=== PATIENT | female | born 1995 | race Caucasian/White ===

== ENCOUNTER 2019-08-17 13:40 | Outpatient (CLI) | payer OTHER, SELFPAY ==
[2019-08-17 14:08] VITALS: BMI 40.3
--- NOTE | 2019-08-17 14:08 | OBADM ---
This patient, Aicha Perez, admitted to the OB room OB Post 113 for observation. Patient/family oriented to hospital policies and general routines including ID bracelet, bed and alarms, visiting hours, pain management, procedures, bathroom and other care routines, personal items, smoking policy, room service/diet, and visiting hours. Patient/Family are encouraged to report perceived risks to care and to ask questions if they do not understand what they are told or what they should do.
[2019-08-17 14:15] VITALS: BP 141/83; PULSE 107
[2019-08-17 14:30] VITALS: BP 140/76; PULSE 107
[2019-08-17 14:39] LABS: Basophils Percent Auto 0.1 % (0.2-1.2); Eosinophils Absolute Auto 0.1 K/mm3 (0-0.3); Eosinophils Percent Auto 0.7 % (0-4.4); Hematocrit 38.7 % (37.0-47.0); Hemoglobin 12.9 g/dL (12.0-15.0); Immature Granulocyte Absolute 0.07 K/mm3 (0.00-0.031); Immature Granulocyte Percent A 0.6 % (0-0.5); Lymphocytes Absolute Auto 1.84 K/mm3 (0.9-3.2); Lymphocytes Percent Auto 16.7 % (18.3-44.2); Mean Corpuscular HGB Conc 33.3 g/dl (32-36); Mean Corpuscular Hemoglobin 30.7 pg (26-34); Mean Corpuscular Volume 92.1 fl (80-100); Monocytes Absolute Auto 0.6 K/mm3 (0.1-0.6); Monocytes Percent Auto 5.4 % (2.6-8.5); Neutrophils Absolute Auto 8.5 K/mm3 (1.3-6.7); Neutrophils Percent Auto 76.5 % (45.5-73.1); Platelet Count Result 138 k/mm3 (150-375); Red Cell Distribution Width 13.2 % (11.5-14.5); White Blood Count 11.1 K/mm3 (4.5-10.0)
[2019-08-17 14:45] VITALS: BP 132/81; PULSE 105
[2019-08-17 14:50] LABS: Alanine Aminotransferase 14 U/L (4-35); Albumin Level 3.5 g/dL (3.5-5.1); Alkaline Phosphatase 135 U/L (38-126); Aspartate Amino Transferase 17 U/L (14-36); Bilirubin,Total 0.4 mg/dL (0.2-1.3); Blood Urea Nitrogen 4 mg/dL (7-17); Calcium 8.9 mg/dL (8.4-10.2); Carbon Dioxide 22 mmol/L (22-30); Chloride 102 mmol/L (98-107); Estimated CRCL calculation 215 ml/min; Estimated Glomerular Filt Rate > 60; Glucose 123 mg/dL (65-105); Potassium 3.2 mmol/L (3.4-5.0); Sodium 134 mmol/L (137-145); Uric Acid 2.2 mg/dL (2.5-7.5)
[2019-08-17 14:54] LABS: Add Urine Microscopic? YES; Appearance Urine Clear (Clear); Bacteria Urine Trace /hpf; Bilirubin Urine 1+ (Negative); Blood Urine Negative (Negative); Color Urine Amber (Yellow); Glucose Urine UA Negative (Negative); Ketones Urine 2+ mg/dL (Negative); Leukocyte Esterase Ur Negative LEU/UL (NEGATIVE); Mucus Urine Heavy /lpf; Nitrate Urine Negative (Negative); Protein Urine 2+ mg/dL (Negative); RBC Urine 0-2 /hpf (0-2); Squamous Epithelial Cell Urine Few /hpf (Few); WBC Urine 0-3 /hpf (0-3)
[2019-08-17 15:00] VITALS: BP 125/77; PULSE 106
[2019-08-17 15:15] VITALS: TEMP 36.6
--- NOTE | 2019-08-17 15:17 | PC.NURSE ---
Called Dr Lam to review labs and blood pressures. Reported NST was reactive and patient is feeling baby move. Dr Lam said patient can be discharged.
== END 2019-08-17 15:24 | disposition home or self-care (01) ==
LOC: ANHOBOP 13:45 → ANHOBPP 13:49
PROVIDERS: Visit Provider Obstetrics & Gynecology
DX: O13.9 Gestational [pregnancy-induced] hypertension without significant proteinuria, unspecified trimester (principal)
CPT/HCPCS: 36415; 80053; 81001; 84550; 85025; 87086; 99199

== ENCOUNTER 2019-08-26 20:30 | Observation (INO) | payer OTHER, SELFPAY ==
--- NOTE | 2019-09-21 12:50 | PM.OBTRLD ---
OB - Triage/Final Diagnosis Visit Information Date of evaluation: 08/19/19 Final Diagnosis (1) False labor: Code(s): O47.9 - False labor, unspecified Status: Acute
== END 2019-08-26 21:45 | disposition home or self-care (01) ==
PROVIDERS: Admitting Provider Obstetrics & Gynecology; Visit Provider Obstetrics & Gynecology
DX: O47.1 False labor at or after 37 completed weeks of gestation (principal); Z3A.38 38 weeks gestation of pregnancy
CPT/HCPCS: G0378; G0379

== ENCOUNTER 2019-08-28 22:20 | Observation (INO) | payer OTHER, SELFPAY ==
[2019-08-28 23:00] VITALS: BMI 40.3
[2019-08-29 00:46] VITALS: BP 135/77; PULSE 91
--- NOTE | 2019-08-29 01:38 | OBADM ---
This patient, Aicha Perez, admitted to the OB room Labor/Delivery/Recovery 105 for observation. Patient/family oriented to hospital policies and general routines including ID bracelet, bed and alarms, visiting hours, pain management, procedures, bathroom and other care routines, personal items, smoking policy, room service/diet, and visiting hours. Patient/Family are encouraged to report perceived risks to care and to ask questions if they do not understand what they are told or what they should do.
--- NOTE | 2019-09-02 08:03 | PM.OBTRLD ---
OB - Triage/Final Diagnosis Final Diagnosis (1) False labor: Code(s): O47.9 - False labor, unspecified Status: Acute
== END 2019-08-29 01:05 | disposition home or self-care (01) ==
PROVIDERS: Admitting Provider Obstetrics & Gynecology; Visit Provider Obstetrics & Gynecology
DX: O47.1 False labor at or after 37 completed weeks of gestation (principal); Z3A.38 38 weeks gestation of pregnancy
CPT/HCPCS: G0378; G0379

== ENCOUNTER 2019-09-01 04:48 | Inpatient (IN) | payer OTHER, SELFPAY ==
[2019-09-01] VITALS (38 sets, daily range): BP systolic 118–151; BP diastolic 71–117; PULSE 97–135; RESP 16; TEMP 36.2–37; O2SAT 98
--- NOTE | 2019-09-01 05:25 | LDADM ---
This patient, Aicha Perez, was admitted to Labor/Delivery/Recovery 107 on 09/01/19 at 04:48. Plans for labor, pain management and were discussed with patient. Patient/family oriented to hospital policies and general routines including ID bracelet, bed and alarms, visiting hours, pain management, procedures, bathroom and other care routines, personal items, smoking policy, room service/diet and guest tray routines, security routines, and visiting hours. Patient/Family are encouraged to report perceived risks to care and to ask questions if they do not understand what they are told or what they should do. See OBIX for further documentation.
--- NOTE | 2019-09-01 05:34 | PC.NURSE ---
all documentation dated 08/31 was in error and was supposed to be dated for 09/01/19 at 0515
[2019-09-01 05:39] LABS: Basophils Percent Auto 0.1 % (0.2-1.2); Eosinophils Absolute Auto 0.1 K/mm3 (0-0.3); Hematocrit 42.6 % (37.0-47.0); Hemoglobin 13.8 g/dL (12.0-15.0); Immature Granulocyte Absolute 0.15 K/mm3 (0.00-0.031); Immature Granulocyte Percent A 1.1 % (0-0.5); Lymphocytes Absolute Auto 2.58 K/mm3 (0.9-3.2); Lymphocytes Percent Auto 18.9 % (18.3-44.2); Mean Corpuscular HGB Conc 32.4 g/dl (32-36); Mean Corpuscular Hemoglobin 30.1 pg (26-34); Mean Platelet Volume 11.7 fl (7.4-10.4); Monocytes Percent Auto 7.2 % (2.6-8.5); Neutrophils Absolute Auto 9.8 K/mm3 (1.3-6.7); Neutrophils Percent Auto 71.7 % (45.5-73.1); Platelet Count Result 160 k/mm3 (150-375); Red Blood Count 4.58 M/mm3 (4.2-5.4); Red Cell Distribution Width 13.2 % (11.5-14.5); White Blood Count 13.6 K/mm3 (4.5-10.0)
[2019-09-01] MEDS: LACTATED RINGERS 1,000 ML 125 ML IV CONT (05:42)
[2019-09-01] MEDS: AMPICILLIN 2 GM/NS 100 ML 2 GM/100 ML BAG IVPB (05:43)
[2019-09-01 07:26] LABS: Rapid Plasma Reagin Non-Reactive (NonReactive)
--- NOTE | 2019-09-01 07:41 | WPDOBADMIT ---
Obstetrics - Admit Note Admission Note: record reviewed. No pertinent additions to the history and/or any subsequent changes in the physical findings that are not consistent with the expected course of the were found. Additions to the history and/or subsequent changes in the physical findings follow. at 39 weeks for induction of labor. Cervix 4/50/-2. AROM with clear fluid. GBS+ so continue ampicillin. Second dose due at 0945 so will start pitocin at that time if not in active labor at that time
--- NOTE | 2019-09-01 07:42 | PM.IMHP ---
H&P: HPI History of Present Illness Chief complaint: INDUCTION OF LABOR Narrative: Aicha Perez is a 23 year old female at 39 weeks for induction of labor today and planning BTL 09/02. Occasional contractions. No complaints. Review of Systems Review of Systems: All systems reviewed & are unremarkable except as noted in HPI and below PMFSH Social History Social History Years smoked: 10 Smoking status: Current every day smoker Substance use: never Gender identity (if verbalized by the patient): Female Spiritual care concerns: No Meds Home Medications and Allergies Home Medications Medication Instructions Recorded Confirmed Type 1 tablet PO DAILY 08/17/19 08/29/19 History buspirone 1 tab-cap PO DAILY 08/17/19 08/29/19 History venlafaxine [Effexor XR] 150 mg PO QAM 08/17/19 08/29/19 History Allergies Allergy/AdvReac Type Severity Reaction Status Date / Time adhesive tape Allergy Mild Rash Verified 01/29/19 11:45 Vital Signs Vital Signs - 24 hr 09/01/19 05:15 09/01/19 06:27 09/01/19 06:31 Temperature 36.7 C Pulse Rate 121 H 129 H Blood Pressure 122/94 H 118/77 09/01/19 06:46 09/01/19 07:01 09/01/19 07:16 Temperature Pulse Rate 109 H 115 H 107 H Blood Pressure 145/71 H 132/82 119/91 H 09/01/19 07:31 Temperature Pulse Rate 109 H Blood Pressure 136/97 H Exam Const: General: no acute distress Resp: Auscultation: clear to auscultation bilaterally Cardio: Rate: regular rate Rhythm: regular rhythm GI: Inspection: non-distended GI Palp: Yes Soft to palpation and No Tenderness to palpation present (GI) Extrem: General: edema Psych: Mental Status: mental status grossly normal H&P: Results Labs Labs: Short CBC 09/01/19 Range/Units 05:29 WBC 13.6 H (4.5-10.0) K/mm3 Hgb 13.8 (12.0-15.0) g/dL Hct 42.6 (37.0-47.0) % Plt Count 160 (150-375) k/mm3 Assessment and Plan Assessment and plan (1) : Code(s): Z34.90 - Encounter for supervision of normal , unspecified, unspecified trimester Status: Acute Assessment and Plan: induction of labor with AROM for now, pitocin later if needed (2) Sterilization: Code(s): Z30.2 - Encounter for sterilization Status: Acute Assessment and Plan: Planning BTL 09/02. She signed consent after R/B/C/A discussed including surgical risks, risk of about 1%, increased risk of ectopic if occurs, and risk of regret. She expressed understanding and wishes to proceed (tomorrow after delivery).
[2019-09-01] MEDS: AMPICILLIN 1 GM/NS 50 ML 1 GM/50 ML BAG IVPB ×2 (09:47→14:23)
--- NOTE | 2019-09-01 12:27 | P.PNAN_ITS ---
Anes - Eval Pre Procedure Procedure: Operation Date: 09/02/19 12:00 Proposed Procedures p Post- Tubal Ligation - Audrey Lam MD Date/Time: 09/01/19 12:27 Pre Op Diagnosis: INDUCTION OF LABOR Patient Data Age: 23 Gender: F Height: Weight: 110 kg Last Vital Signs Temp 36.4 C 09/01/19 12:05 Pulse 127 H 09/01/19 12:01 BP 118/80 09/01/19 12:01 Allergies Allergy/AdvReac Type Severity Reaction Status Date / Time adhesive tape Allergy Mild Rash Verified 01/29/19 11:45 Home Medications Medication Instructions Recorded Confirmed Type 1 tablet PO DAILY 08/17/19 08/29/19 History buspirone 1 tab-cap PO DAILY 08/17/19 08/29/19 History venlafaxine [Effexor XR] 150 mg PO QAM 08/17/19 08/29/19 History Laboratory Tests 09/01/19 09/01/19 09/01/19 05:29 05:29 05:29 WBC 13.6 K/mm3 H K/mm3 (4.5-10.0) RBC 4.58 M/mm3 M/mm3 (4.2-5.4) Hgb 13.8 g/dL g/dL (12.0-15.0) Hct 42.6 % % (37.0-47.0) MCV 93.0 fl fl (80-100) MCH 30.1 pg pg (26-34) MCHC 32.4 g/dl g/dl (32-36) RDW 13.2 % % (11.5-14.5) Plt Count 160 k/mm3 k/mm3 (150-375) MPV 11.7 fl H fl (7.4-10.4) Immature Gran % (Auto) 1.1 % H % (0-0.5) Neut % (Auto) 71.7 % % (45.5-73.1) Lymph % (Auto) 18.9 % % (18.3-44.2) [place] % (Auto) 7.2 % % (2.6-8.5) Eos % (Auto) 1.0 % % (0-4.4) Baso % (Auto) 0.1 % L % (0.2-1.2) Lymph # (Auto) 2.58 K/mm3 K/mm3 (0.9-3.2) [place] # (Auto) 1.0 K/mm3 H K/mm3 (0.1-0.6) Eos # (Auto) 0.1 K/mm3 K/mm3 (0-0.3) Baso # (Auto) 0.0 K/mm3 K/mm3 (0.0-0.1) Abs Immat Gran (auto) 0.15 K/mm3 H K/mm3 (0.00-0.031) Absolute Neuts (auto) 9.8 K/mm3 H K/mm3 (1.3-6.7) Absolute Nucleated RBC 0.0 K/mm3 K/mm3 (0.0-0.012) Nucleated RBC % 0.0 % % (0.0-0.2) RPR Non-reactive (NonReactive) Blood Type A Positive Antibody Screen Negative Patient hx anesthesia problems: none Family hx anesthesia problems: none PMFSH Social History Social History Years smoked: 10 Smoking status: Current every day smoker Substance use: never Gender identity (if verbalized by the patient): Female Spiritual care concerns: No Exam Day of Procedure 09/01/19 12:27 Patient weight: obese Heart: regular rate and rhythm Lungs: clear to auscultation Airway: Mallampati scale class III Neurological: alert and oriented
--- NOTE | 2019-09-01 17:03 | P.PCNOB_ITS ---
OB - Delivery Note Procedure Delivery date: 09/01/19 Procedure: Procedures Operation Date: 09/02/19 12:00 <No data on this case meets the specified criteria> events: Labor Induction Intrapartal events: None Induction method: AROM Delivery augmentation: pitocin Delivery monitor: external FHT Route of delivery: Laceration description: None Estimated blood loss (mL): 75 Anesthesia type: None Disposition: floor [place] Baby Date of : 09/01/19 Time of : 16:48 Weeks of gestation at delivery: 39 gender: Female Weight (pounds): 8 Weight (ounces): 13 presentation: vertex position: Left Occiput Anterior Placenta delivery description: Spontaneous cord vessel description: 3 Vessels score one minute: 4 score five minutes: 7 score ten minutes: 9
--- NOTE | 2019-09-01 19:40 | OBPPTRN ---
Patient transferred to post room #291 via wheelchair. Support person present. Oriented to unit, room, information board, rooming in, admission packet and security measures. Patient verbalizes understanding. with patient.
[2019-09-01] MEDS: IBUPROFEN 600 MG TABLET PO (20:13)
[2019-09-01] MEDS: VENLAFAXINE HCL XR 75 MG CAP.ER.24H 150 MG PO (21:33)
[2019-09-01] MEDS: busPIRone HCL 5 MG TABLET 15 MG PO (22:08)
[2019-09-02] VITALS (12 sets, daily range): BP systolic 110–138; BP diastolic 72–93; PULSE 82–109; RESP 14–18; TEMP 36.2–37.2; O2SAT 95–99
[2019-09-02 05:03] LABS: Hematocrit 40.9 % (37.0-47.0); Hemoglobin 13.7 g/dL (12.0-15.0)
--- NOTE | 2019-09-02 07:42 | PM.OBPNVD ---
OB - PN: Subj Subjective Date/time seen: 09/02/19 07:42 Patient comments: no complaints, pain well controlled and other (Lochia similar to menses) [place] baby status: doing well OB - PN: Obj Data Labs CBC & Chem 7: 09/02/19 04:19 Labs: Laboratory Results - last 24 hr 09/02/19 04:19 Hgb 13.7 Hct 40.9 OB - PN A/P Assessment and Plan (1) Sterilization: Code(s): Z30.2 - Encounter for sterilization Status: Acute Assessment and Plan: BTL scheduled later today. Remain NPO Plan day: 1 (s/p vaginal delivery, doing well) Plan: routine care Time Spent With Patient Time: Total time spent is greater than 50% in coordination of care (as documented) at patient's floor/unit and/or counseling patient: Exam Const: General: no acute distress GI: Inspection: other (Fundus firm and nontender at umbilicus) GI Palp: Yes Soft to palpation and No Tenderness to palpation present (GI) Extrem: General: no edema
--- NOTE | 2019-09-02 07:43 | WPDHPUPDATE1 ---
History and Physical Update Update Date/Time: 09/02/19 07:43 History and Physical has been reviewed, including an updated exam of the patient. There are NO changes in the patient's condition. Risks, benefits, and alternatives have been discussed and questions answered. Patient agrees to proceed with procedure.
--- NOTE | 2019-09-02 07:43 | PM.OBDSVD ---
DS: Diagnosis Admitting Diagnosis Admitting Diagnosis: Encounter for supervision of normal , unspecified, unspecified trimester OB - DS: Summary OB Procedures : None OB Procedures Intrapartum: Spontaneous Vag Delivery OB Procedures: : P.P. tubal ligation Peripartum Data Delivery Method: Natural Vaginal Laceration description: None Procedures: Procedures Operation Date: 09/02/19 12:00 <No data on this case meets the specified criteria> complications: none Status at Discharge Functional status at discharge: independent ambulation Overall status at discharge: patient is progressing back to baseline Time Spent with Patient Time attestation: Total time spent providing and/or coordinating discharge services: Time spent: Less than 30 minutes DS: Data Data Completed and Pending Pending studies at discharge: Pending at discharge 09/01/19 16:58 Surgical [PTH] Routine Labs on day of discharge: Labs from last 24 hours 09/02/19 04:19 Hgb 13.7 Hct 40.9 Discharge Plan Discharge Attending physician on discharge: Audrey Lam Anticipated Discharge Date/Time: 09/03/19 13:44 Activity: may shower and pelvic rest Diet: regular Follow-up/Referrals: Audrey Lam MD [Physician] - 1 Week Discharge Medications: Continued buspirone 7.5 MG tablet 2 tab-cap PO DAILY RF: 0 venlafaxine [Effexor XR] 150 mg Capsule,Extended Release 24hr 150 mg PO QPM RF: 0 No Action 28-800 mg-mcg Tablet 1 tablet PO DAILY RF: 0 Date of admission: 09/01/19 04:48 Primary Care Provider: UNKNOWN,DOCTOR Admitting Provider: Audrey Lam Attending physician on admission: Audrey Lam
[2019-09-02] MEDS: LACTATED RINGERS 1,000 ML 30 ML IV CONT (11:30)
--- NOTE | 2019-09-02 11:37 | WPDANESEFPP ---
Anes - Eval Final PreProcedure Day of Procedure 09/02/19 11:37 Patient weight: obese Heart: regular rate and rhythm Lungs: clear to auscultation Airway: Mallampati scale class II Last oral intake: >/= 8 hours ASA classification: II Emergent: no Anesthetic plan: proceed Anesthesia type and monitoring: general ETT and standard monitoring Informed Consent: The patient's anesthetic plan and its attendant risks and benefits were discussed with the patient/family/POA. Questions were solicited and answers provided to the satisfaction of the patient/family/POA.
--- NOTE | 2019-09-02 12:25 | PM.OP ---
Procedure Note - Brief Procedure Note - Brief Date of procedure: 09/02/19 Pre-op diagnosis: INDUCTION OF LABOR Desires sterilization Post-op diagnosis: same Procedure performed: BTL Anesthesia: GETA Surgeon: Audrey Lam MD Estimated blood loss (mL): 10 Drains: No Packing: No Pathology: yes Complications: No immediate complications Condition: stable Disposition: PACU Findings: normal fallopian tubes, enlarged uterus
[2019-09-02] MEDS: BUPIVACAINE/EPINEPHRINE 0.5% 10 ML VIAL INFILTRATE (12:41)
[2019-09-02] MEDS: KETOROLAC 30 MG/ML VIAL (*BKC) IV PUSH (13:00)
--- NOTE | 2019-09-02 14:44 | OP_ITS ---
DATE OF PROCEDURE: 09/02/2019 PREOPERATIVE DIAGNOSIS: Desires sterilization. POSTOPERATIVE DIAGNOSIS: Desires sterilization. PROCEDURE PERFORMED: bilateral tubal ligation. ANESTHESIA: General endotracheal tube. ESTIMATED BLOOD LOSS: 10 mL. COMPLICATIONS: None. FINDINGS: Enlarged uterus just slightly below umbilicus. Normal fallopian tubes bilaterally. INDICATIONS: 23-year-old, G5, P4-0-1-4, who had a vaginal delivery yesterday on September 01, had expressed a desire throughout her as well as today for tubal ligation. She had signed consent both in the office and here at the hospital after the risks, benefits, complications, and alternatives were discussed. DESCRIPTION OF PROCEDURE: For the procedure, she was taken to the operating room where general anesthesia was obtained. She was prepared and draped in the normal sterile fashion in the dorsal supine position. Marcaine was injected infraumbilically and the infraumbilical fold was tented up with 2 Allis clamps. An incision was made with a scalpel between the 2 clamps. The underlying tissue was dissected sharply. The fascia was grasped with 2 hemostats, and then the fascia was incised using the Metzenbaum scissors. The incision was extended laterally using the Metzenbaum scissors as well as the peritoneum had been entered at the same time. The right fallopian tube was identified and grasped with a Barbara clamp. The mesosalpinx was opened using the Bovie cautery. Two free ties of 0 plain gut were placed around the right fallopian tube and the intervening segment of tube was excised using the Metzenbaum scissors. Excellent hemostasis was observed and that fallopian tube was returned to the abdomen. The same procedure was performed on the left fallopian tube. Both tubes had been followed out to the fimbriated end to ensure identification of the correct structure. The fascia was then closed using 0 Vicryl in a running fashion and the skin was closed using 4-0 Monocryl in subcuticular fashion. She tolerated the procedure well. Sponge, lap, needle, and instrument counts were correct x2 and she was taken to the recovery room in stable condition. D I MT: [facility]
[2019-09-02] MEDS: IBUPROFEN 600 MG TABLET PO (16:29)
[2019-09-02] MEDS: VENLAFAXINE HCL XR 75 MG CAP.ER.24H 150 MG PO (21:00)
[2019-09-02] MEDS: busPIRone HCL 5 MG TABLET 15 MG PO (21:00)
--- NOTE | 2019-09-03 07:48 | PM.OBPNVD ---
OB - PN: Subj Subjective Date/time seen: 09/03/19 07:48 Patient comments: no complaints baby status: doing well OB - PN: Obj Data Labs CBC & Chem 7: 09/02/19 04:19 OB - PN A/P Plan day: 2 Plan: discharge home Time Spent With Patient Time: Total time spent is greater than 50% in coordination of care (as documented) at patient's floor/unit and/or counseling patient: Review of Systems Review of Systems: All systems reviewed & are unremarkable except as noted in HPI and below Exam Const: General: comfortable Resp: Effort & Inspection: normal respiratory effort GI: Other: Abdominal incision bruised tender to touch
--- NOTE | 2019-09-03 07:50 | PM.OBDSVD ---
DS: Diagnosis Admitting Diagnosis Admitting Diagnosis: Encounter for supervision of normal , unspecified, unspecified trimester OB - DS: Summary OB Procedures : None OB Procedures Intrapartum: Spontaneous Vag Delivery OB Procedures: : P.P. tubal ligation Peripartum Data Procedures: Procedures Operation Date: 09/02/19 12:00 Actual Procedures Side Surgeon p Post- Tubal Ligation Bilateral Audrey Lam MD Time Spent with Patient Time attestation: Total time spent providing and/or coordinating discharge services: DS: Data Data Completed and Pending Pending studies at discharge: Pending at discharge 09/01/19 16:58 Surgical [PTH] Routine 09/02/19 12:52 Surgical [PTH] Routine 09/02/19 12:53 Surgical [PTH] Routine Discharge Plan Discharge Attending physician on discharge: Audrey Lam Discharging Clinician: Cora Baca Anticipated Discharge Date/Time: 09/03/19 13:44 Patient Disposition: Home, Self-Care Activity: may shower and pelvic rest Diet: regular Wound Care Instructions: follow printed instructions Patient Instructions: Antibiotic Form Stand Alone Forms: General Discharge Information Follow-up/Referrals: Audrey Lam MD [Physician] - 1 Week Discharge Medications: New ibuprofen 600 mg Tablet 600 mg PO Q6H PRN (Reason: Cramping) Qty: 30 RF: 0 Continued buspirone 7.5 MG tablet 2 tab-cap PO DAILY RF: 0 venlafaxine [Effexor XR] 150 mg Capsule,Extended Release 24hr 150 mg PO QPM RF: 0 28-800 mg-mcg Tablet 1 tablet PO DAILY RF: 0 Date of admission: 09/01/19 04:48 Primary Care Provider: UNKNOWN,DOCTOR Admitting Provider: Audrey Lam Attending physician on admission: Audrey Lam
[2019-09-03] MEDS: DOCUSATE SODIUM 100 MG CAPSULE PO (08:26)
[2019-09-03] MEDS: IBUPROFEN 600 MG TABLET PO (08:26)
[2019-09-03 08:45] VITALS: BP 131/81; PULSE 90; RESP 18; TEMP 37.3; O2SAT 97
--- NOTE | 2019-09-03 10:15 | PC.NURSE ---
Dr. Baca here per Geovanna Mirza's request. Dr. Baca examined patient's abdominal incision and is okay to discharge patient home. Patient knows to be aware if there are any changes in her incision to call the right away.
--- NOTE | 2019-09-03 10:30 | PC.NURSE ---
Patient instructed on viewing the discharge video Mother & Baby Care, The First Two Weeks online. Patient was given the opportunity and encouraged to ask questions. Patient verbalized understanding of information shared and has been given the mother/baby guide for home reference.
[2019-09-04 10:34] VITALS: BP 135/90; PULSE 90; RESP 18; TEMP 36.7
== END 2019-09-03 10:43 | disposition home or self-care (01) | DRG 798 ==
LOC: ANHLDR 09:13 → ANHOB2 19:42
PROVIDERS: Admitting Provider Obstetrics & Gynecology; Visit Provider Obstetrics & Gynecology
PROC: 0UB70ZZ Excision of Bilateral Fallopian Tubes, Open Approach (ICD-10-PCS; CPT 58605; principal; 2019-09-02 12:00)
DX: O99.214 Obesity complicating childbirth (principal); Z37.0 Single live birth; Z3A.39 39 weeks gestation of pregnancy; E66.9 Obesity, unspecified; Z23 Encounter for immunization
CPT/HCPCS: 36415; 85014; 85018; 85025; 86592; 86850; 86900; 86901; 88302; 88307; A9270; J0131; J0290; J1100; J1885; J2250; J2405; J2590; J2704; J3010; J7120

== ENCOUNTER 2020-04-16 01:09 | Outpatient (CLI) | payer OTHER, SELFPAY ==
[2020-04-16 16:30] LABS: SARS-CoV-2 RNA PCR Negative
== END 2020-04-16 01:10 | disposition home or self-care (01) ==
LOC: ANHCOVIDDT 01:09
PROVIDERS: Visit Provider Obstetrics & Gynecology
DX: Z01.812 Encounter for preprocedural laboratory examination (principal); Z20.828 Contact with and (suspected) exposure to other viral communicable diseases
CPT/HCPCS: 87635; C9803; U0003

== ENCOUNTER 2020-04-19 02:34 | Day surgery (SDC) | payer OTHER, SELFPAY ==
[2020-04-05 13:42] VITALS: BMI 38.2
[2020-04-19] VITALS (16 sets, daily range): BP systolic 104–147; BP diastolic 64–86; PULSE 80–106; RESP 12–18; TEMP 36.5–37.1; O2SAT 91–100
--- NOTE | 2020-04-19 08:58 | PM.IMHP ---
H&P: HPI History of Present Illness Date/Time: 04/19/20 08:58 Chief complaint: Endometriosis Narrative: Aicha Perez is a 24 year old female c/o daily lower back pain wrapping around to BLQ and shooting down legs. She also has dyspareunia. She had laparoscopy in 2016 showing endometriosis and tried Orilissa but conceived while taking it. She tried OCP for 4 months after 08/2019 with slight improvement in pain but worsening of anxiety. She had BTL, so she stopped OCP and pain is worsening. 800 mg ibuprofen 2-3 times per day is not helping. Review of Systems Review of Systems: All systems reviewed & are unremarkable except as noted in HPI and below PMFSH Past Medical History Medical History Anxiety Depression Endometriosis Missed 2014 Vaginal delivery 10/15/08, , full term, male, 7#6 10/03/11, , full term, female, 8#13 02/17/18, , full term, male, 8#10 09/01/19, , full term, female, 8#13 Surgical History Surgical History History of bilateral tubal ligation 2019 History of oral surgery History of tonsillectomy S/P laparoscopic procedure 2016 Family History Family History Sibling Breast cancer Other Carcinoma of colon uncle Acute myocardial infarction uncle Cerebrovascular accident uncle Social History Social History Smoking packs per day: 0.5 Smoking cigarettes per day: 10.0 Years smoked: 14 Smoking pack-years: 7.00 Smoking status: Current every day smoker Tobacco type: cigarettes Alcohol intake: never Substance use: current Substance use type: marijuana Last use: 04/03/20 Gender identity (if verbalized by the patient): Female Spiritual care concerns: No Meds Home Medications and Allergies Home Medications Medication Instructions Recorded Confirmed Type venlafaxine [Effexor XR] 150 mg PO QPM 08/17/19 04/05/20 History ibuprofen 200 mg tablet 200 mg PO Q6H PRN 03/31/20 04/05/20 History buspirone 7.5 mg PO BID 04/05/20 04/05/20 History phenylephrine HCl [Suphedrine PE] 10 mg PO Q4-6H PRN 04/05/20 04/05/20 History Allergies Allergy/AdvReac Type Severity Reaction Status Date / Time adhesive tape Allergy Mild Rash Verified 04/05/20 13:42 Exam Const: General: no acute distress Resp: Auscultation: clear to auscultation bilaterally Cardio: Rate: regular rate Rhythm: regular rhythm GI: Inspection: non-distended GI Palp: Yes Soft to palpation and No Tenderness to palpation present (GI) : Other: Uterus normal size, nontender, mobile, smooth. Adnexa mildly tender bilaterally, + CMT. No adnexal masses palpable Psych: Mental Status: mental status grossly normal Assessment and Plan Assessment and plan (1) Endometriosis determined by laparoscopy: Code(s): N80.9 - Endometriosis, unspecified Status: Acute Assessment and Plan: She opted and signed consent for TLH/BSO after risks, benefits, complications, and alternatives discussed. She expressed understanding and wishes to proceed. She prefers to start estrogen therapy immediately after surgery.
[2020-04-19] MEDS: LACTATED RINGERS 1,000 ML 30 ML IV CONT ×3 (11:35→14:30)
[2020-04-19] MEDS: KETOROLAC 15 MG/ML VIAL (*BKC) IV PUSH (11:44)
[2020-04-19] MEDS: ACETAMINOPHEN 500 MG TABLET 1000 MG PO (11:44)
--- NOTE | 2020-04-19 11:51 | WPDHPUPDATE1 ---
History and Physical Update Update Date/Time: 04/19/20 11:51 History and Physical has been reviewed, including an updated exam of the patient. There are NO changes in the patient's condition. Risks, benefits, and alternatives have been discussed and questions answered. Patient agrees to proceed with procedure.
--- NOTE | 2020-04-19 12:09 | WPDANESEPPF ---
Anes - Initial Pre Proc Eval Procedure: Operation Date: 04/19/20 13:00 Proposed Procedures p Total Laparoscopic Assisted Hysterectomy, Bilateral Salpingo-Oophorectomy - Audrey Lam MD Date/Time: 04/19/20 12:09 Surgeon: Audrey Lam MD Pre Op Diagnosis: Endometriosis Patient Data Age: 24 Gender: F Height: 5 ft 5 in Weight: 104.8 kg Allergies Allergy/AdvReac Type Severity Reaction Status Date / Time adhesive tape Allergy Mild Rash Verified 04/19/20 12:06 Home Medications Medication Instructions Recorded Confirmed Type venlafaxine [Effexor XR] 150 mg PO QPM 08/17/19 04/19/20 History ibuprofen 200 mg tablet 200 mg PO Q6H PRN 03/31/20 04/19/20 History buspirone 7.5 mg PO BID 04/05/20 04/19/20 History phenylephrine HCl [Suphedrine PE] 10 mg PO Q4-6H PRN 04/05/20 04/19/20 History Patient hx anesthesia problems: none Family hx anesthesia problems: none PMFSH Past Medical History Medical History Anxiety Depression Endometriosis Missed 2014 Vaginal delivery 10/15/08, , full term, male, 7#6 10/03/11, , full term, female, 8#13 02/17/18, , full term, male, 8#10 09/01/19, , full term, female, 8#13 Surgical History Surgical History History of bilateral tubal ligation 2019 History of oral surgery History of tonsillectomy S/P laparoscopic procedure 2016 Family History Family History Sibling Breast cancer Other Carcinoma of colon uncle Acute myocardial infarction uncle Cerebrovascular accident uncle Social History Social History Smoking packs per day: 0.5 Smoking cigarettes per day: 10.0 Years smoked: 14 Smoking pack-years: 7.00 Smoking status: Current every day smoker Tobacco type: cigarettes Alcohol intake: never Substance use: current Substance use type: marijuana Last use: 04/03/20 Gender identity (if verbalized by the patient): Female Spiritual care concerns: No Anes - Eval Final PreProcedure Day of Procedure 04/19/20 12:09 Patient weight: obese Heart: regular rate and rhythm Lungs: clear to auscultation Airway: Mallampati scale class II Neurological: alert and oriented Last oral intake: >/= 8 hours ASA classification: II Emergent: no Anesthetic plan: proceed Anesthesia type and monitoring: general ETT and standard monitoring Informed Consent: The patient's anesthetic plan and its attendant risks and benefits were discussed with the patient/family/POA. Questions were solicited and answers provided to the satisfaction of the patient/family/POA.
[2020-04-19] MEDS: ceFAZolin 2 GM/D5W 50 ML 2 GM/50 ML BAG IVPB (12:17)
[2020-04-19] MEDS: BUPIVACAINE/EPINEPHRINE 0.5% 10 ML VIAL 20 ML INFILTRATE (13:16)
--- NOTE | 2020-04-19 14:16 | PM.PROC ---
Procedure Note - Detailed Date of procedure: 04/19/20 Pre-op diagnosis: Endometriosis Post-op diagnosis: same Procedure performed: TLH/BSO Description of procedure: She was taken to the operating room where general anesthesia was obtained. She was prepared and draped in the normal sterile fashion in the dorsal lithotomy position. Marcaine was injected infraumbilically and a 5 mm skin incision was made in the infraumbilical fold with a scalpel. A 5 mm non bladed trocar was placed with the camera in the trocar under direct visualization into the peritoneal cavity. Insufflation was begun and she was placed in Trendelenburg. Another 5 mm trocar was placed in the left lower quadrant under direct visualization. A 10 mm trocar was placed in the right lower quadrant. Inspection of the pelvis revealed the findings as noted above. The right infundibulopelvic ligament was grasped, coagulated, and transected using the Harmonic scalpel. The mesosalpinx was serially clamped and transected. The right round ligament was clamped and transected. The bladder flap was then created from the right side. The left infundibulopelvic ligament was then grasped, coagulated, and transected. The mesosalpinx was serially clamped and transected as was the left round ligament. The bladder flap was created from the left side meeting the flap from the right. The bladder flap was created further using a laparoscopic Kittner. The right uterine artery was skeletonized,clamped, coagulated, and transected with excellent hemostasis visualized. Another couple bites were taken down the broad ligament until the level of the uterosacral ligament had been reached. The left uterine artery was then clamped and transected. Another few bites were taken down the broad ligament until the level of the uterosacral ligament had been reached. Both uterosacral ligaments were then transected. A sponge stick was placed in the vagina and pressed against the anterior cul-de-sac. An anterior colpotomy incision was made with the Harmonic scalpel against the sponge stick. The vagina was then circumferentially incised hugging against the cervix until the entire cervix and uterus was free of the surrounding vaginal tissue. The cervix and uterus was pressed down as far as possible into the vaginal canal. Attention was then turned to the vagina. A speculum was placed. The cervix was grasped with a single-tooth tenaculum. Gentle traction was applied until the uterus, tubes, and ovaries were brought through the vagina entirely. Moist blue towel was placed in the vagina to help hold in the pneumoperitoneum. Attention was turned back to the abdomen. The pelvis was copiously irrigated. All operative sites were found to be hemostatic. The vagina was then closed using interrupted 0 Vicryl sutures. A total of 3 sutures were placed for reapproximation. The pelvis was irrigated once again. All operative sites were again found to be hemostatic. The right lower quadrant trocar was removed. The [place] device along with an 0 Vicryl was used to close the fascia of the right lower quadrant incision. The pneumoperitoneum was allowed to escape. All trocars were removed. All skin incisions were closed using 4 0 Monocryl in subcuticular fashion. She tolerated the procedure well. Sponge, lap, instrument, and needle counts were correct x2. She was taken to the recovery room in stable condition. Anesthesia: GETA Surgeon: Audrey Lam MD Estimated blood loss (mL): 150 Drains: Yes (Anand) Packing: No Pathology: yes Complications: No immediate complications Condition: stable Disposition: PACU Findings: Enlarged uterus, prior tubal ligation, normal ovaries, appendix, liver. Endometriosis on vesicouterine peritoneum and bilateral cul-de-sac / uterosacral ligaments
--- NOTE | 2020-04-19 15:50 | PC.NURSE ---
This patient, Aicha Perez, was received from PACU on 04/19/20 at 1550. Patient/family oriented to unit policies and routines
[2020-04-19] MEDS: DEXTROSE 5%/LACTATED RINGERS 1,000 ML 125 ML IV CONT (16:21)
[2020-04-19] MEDS: KETOROLAC 30 MG/ML VIAL (*BKC) IV PUSH (16:21)
[2020-04-19] MEDS: DOCUSATE SODIUM 100 MG CAPSULE PO (19:17)
[2020-04-19] MEDS: IBUPROFEN 600 MG TABLET PO (19:17)
[2020-04-19] MEDS: ENOXAPARIN 40 MG/0.4 ML SYRINGE SUB-Q (20:16)
[2020-04-19] MEDS: busPIRone HCL 5 MG TABLET 15 MG PO (20:16)
[2020-04-19] MEDS: VENLAFAXINE HCL XR 75 MG CAP.ER.24H 150 MG PO (20:16)
[2020-04-19] MEDS: HYDROcodone/acetaminophen (*CRX) 5-325 MG TABLET 1 TAB PO (22:27)
[2020-04-20] VITALS: BP 112/67; PULSE 100; RESP 18; TEMP 36.6; O2SAT 95
[2020-04-20 04:00] VITALS: BP 100/50; PULSE 87; RESP 16; TEMP 36.8; O2SAT 95
[2020-04-20 04:37] LABS: Basophils Percent Auto 0.2 % (0.2-1.2); Eosinophils Percent Auto 0.1 % (0-4.4); Hematocrit 38.2 % (37.0-47.0); Hemoglobin 12.6 g/dL (12.0-15.0); Immature Granulocyte Percent A 0.6 % (0-0.5); Lymphocytes Absolute Auto 2.59 K/mm3 (0.9-3.2); Lymphocytes Percent Auto 15.2 % (18.3-44.2); Mean Corpuscular Hemoglobin 30.5 pg (26-34); Mean Corpuscular Volume 92.5 fl (80-100); Mean Platelet Volume 10.8 fl (7.4-10.4); Monocytes Absolute Auto 0.8 K/mm3 (0.1-0.6); Monocytes Percent Auto 4.7 % (2.6-8.5); Neutrophils Absolute Auto 13.5 K/mm3 (1.3-6.7); Neutrophils Percent Auto 79.2 % (45.5-73.1); Nucleated Red Blood Cells Perc 0.1 % (0.0-0.2); Platelet Count Result 252 k/mm3 (150-375); Red Blood Count 4.13 M/mm3 (4.2-5.4); Red Cell Distribution Width 11.8 % (11.5-14.5); White Blood Count 17.1 K/mm3 (4.5-10.0)
[2020-04-20 04:51] LABS: Anion Gap 3 mmol/L (8-16); Blood Urea Nitrogen 5 mg/dL (7-17); Carbon Dioxide 29 mmol/L (22-30); Chloride 107 mmol/L (98-107); Estimated CRCL calculation 145 ml/min; Estimated Glomerular Filt Rate > 60; Glucose 107 mg/dL (65-105); Potassium 3.8 mmol/L (3.4-5.0); Sodium 139 mmol/L (137-145)
[2020-04-20] MEDS: IBUPROFEN 600 MG TABLET PO ×2 (04:53→10:25)
--- NOTE | 2020-04-20 07:18 | WPDANESPN ---
Anes - Prog Note Post-Op Date/Time: 04/20/20 07:18 Cardiovascular status: normal Respiratory status: normal Airway patency: baseline Mental status: baseline Post-Op hydration status: normal Vital Signs: Last Vital Signs Temp 36.8 C 04/20/20 04:00 Pulse 87 04/20/20 04:00 Resp 16 04/20/20 04:00 BP 100/50 L 04/20/20 04:00 Pulse Ox 95 04/20/20 04:00 Pain Score (VAS): 07/25 I/O: Intake & Output 04/19/20 04/19/20 04/20/20 15:59 23:59 07:59 Intake Total 150 1000 Output Total 933 515 8699 Balance 50 -500 -650 Laboratory Tests 04/20/20 03:51 04/20/20 03:51 04/20/20 04/20/20 03:51 03:51 WBC 17.1 H RBC 4.13 L Hgb 12.6 Hct 38.2 MCV 92.5 MCH 30.5 MCHC 33.0 RDW 11.8 Plt Count 252 D MPV 10.8 H Immature Gran % (Auto) 0.6 H Neut % (Auto) 79.2 H Lymph % (Auto) 15.[address] [place] % (Auto) 4.7 Eos % (Auto) 0.1 Baso % (Auto) 0.2 Lymph # (Auto) 2.59 [place] # (Auto) 0.8 H Eos # (Auto) 0.0 Baso # (Auto) 0.0 Abs Immat Gran (auto) 0.10 H Absolute Neuts (auto) 13.5 H Absolute Nucleated RBC 0.0 Nucleated RBC % 0.1 Sodium 139 Potassium 3.8 Chloride 107 Carbon Dioxide 29 Anion Gap 3 L BUN 5 L Creatinine 0.60 L Estim Creat Clear Calc 145 Estimated GFR > 60 Glucose 107 H Calcium 9.0 Post-procedural complaints: none Patient Feedback: Patient satisfied with anesthetic care.
[2020-04-20 07:30] VITALS: BP 124/71; PULSE 98; RESP 16; TEMP 36.7; O2SAT 96
[2020-04-20] MEDS: estradioL 1 MG TABLET PO (07:40)
[2020-04-20] MEDS: DOCUSATE SODIUM 100 MG CAPSULE PO (07:41)
[2020-04-20] MEDS: HYDROcodone/acetaminophen (*CRX) 5-325 MG TABLET 1 TAB PO ×2 (07:41→10:26)
--- NOTE | 2020-04-20 07:41 | PM.GYNPNOP ---
JAILKEEPER - A/P Postoperative Procedures: Procedures Operation Date: 04/19/20 13:00 Actual Procedures Side Surgeon p Total Laparoscopic Assisted Hysterectomy, Bilateral Salpingo-Oophorectomy Bilateral Audrey Lam MD Postoperative day: 1 (s/p hysterectomy) Postoperative status: doing well Postoperative plan: routine post-op care and discharge (and follow up in office in 1 week) Time Spent With Patient Time: Total time spent is greater than 50% in coordination of care (as documented) at patient's floor/unit and/or counseling patient: Time with patient: less than 15 minutes JAILKEEPER- PN:Subj Post-Op Subjective Date/time seen: 04/20/20 07:41 Subjective: patient has no complaints, pain is well controlled and other (Tolerating regular diet. + flatus. Voiding without problems) Exam Const: General: no acute distress Resp: Auscultation: clear to auscultation bilaterally Cardio: Rate: regular rate Rhythm: regular rhythm GI: Inspection: non-distended and incision (Intact without erythema, drainage, or induration) GI Palp: Yes abdominal tenderness (appropriate) and Yes Soft to palpation Extrem: General: no edema JAILKEEPER - PN: Obj Data Vital Signs Vital Signs: Vital Signs - 24 hr 04/19/20 11:06 04/19/20 14:28 04/19/20 14:43 Temperature 36.5 C 36.6 C Pulse Rate 96 106 H 91 Respiratory Rate 18 16 14 Blood Pressure 147/78 H 116/86 122/73 Pulse Oximetry 98 99 100 04/19/20 14:58 04/19/20 15:13 04/19/20 15:28 Temperature 36.6 C Pulse Rate 88 97 89 Respiratory Rate 12 14 12 Blood Pressure 124/68 123/69 119/74 Pulse Oximetry 100 94 94 04/19/20 15:37 04/19/20 16:00 04/19/20 16:15 Temperature 37.1 C Pulse Rate 93 100 88 Respiratory Rate 13 16 Blood Pressure 126/65 109/73 109/71 Pulse Oximetry 95 93 92 04/19/20 16:30 04/19/20 16:45 04/19/20 17:00 Temperature Pulse Rate 80 81 87 Respiratory Rate Blood Pressure 108/71 104/65 106/69 Pulse Oximetry 91 91 92 04/19/20 17:30 04/19/20 18:00 04/19/20 19:00 Temperature 36.7 C Pulse Rate 80 89 81 Respiratory Rate 18 16 Blood Pressure 111/67 109/65 109/68 Pulse Oximetry 93 95 95 04/19/20 20:00 04/20/20 00:00 04/20/20 04:00 Temperature 36.9 C 36.6 C 36.8 C Pulse Rate 90 100 87 Respiratory Rate 18 18 16 Blood Pressure 112/64 112/67 100/50 L Pulse Oximetry 97 95 95 Intake/Output Intake/Output: Intake & Output 04/17/20 04/18/20 04/19/20 04/20/20 23:59 23:59 23:59 23:59 Intake Total 150 1000 Output Total 600 1650 Balance -450 -650 Meds/Results Medications: Active Medications Generic Name Dose Route Start Last Admin Trade Name Freq PRN Reason Stop Dose Admin Hydrocodone Bitart/Acetaminophen 1 tab 04/19/20 15:39 04/19/20 22:27 [place] 5-325 Mg PO 1 tab Q3H PRN Administration Pain Rated 5 or Less Buspirone HCl 15 mg 04/19/20 20:00 04/19/20 20:16 Buspar PO 15 mg 2000 [facility] Administration Docusate Sodium 100 mg 04/19/20 17:00 04/19/20 19:17 Colace Capsule PO 100 mg BID RENA Administration Enoxaparin Sodium 40 mg 04/19/20 20:00 04/19/20 20:16 Lovenox SUB-Q 40 mg DAILY@2000 [facility] Administration Estradiol 1 mg 04/20/20 09:00 Estrace PO QAM RENA Ibuprofen 600 mg 04/19/20 15:39 04/20/20 04:53 Motrin PO 600 mg Q6H PRN Administration Cramping Ketorolac Tromethamine 30 mg 04/19/20 15:39 04/19/20 16:21 Toradol Inj IV PUSH 04/24/20 15:40 30 mg Q6H PRN Administration Pain Rated 4-6 Morphine Sulfate 4 mg 04/19/20 15:39 Morphine Sulfate Inj (*Crx) IV PUSH Q4H PRN Pain Rated 7-10 Naloxone HCl 0.1 mg 04/19/20 15:39 Narcan IV PUSH Q2M PRN Respiratory rate less than 10 Ondansetron HCl 4 mg 04/19/20 15:39 Zofran Inj IV PUSH Q6H PRN Nausea Simethicone 80 mg 04/19/20 15:39 Mylicon PO Q2H PRN Gas Venlafaxine HCl 150 mg 04/19/20 20:00 04/19/20 20:16 Effexor Xr PO 150 mg 200
--- NOTE | 2020-04-20 07:41 | PM.DS ---
DS: Admitting Diagnosis Admitting Diagnosis Admitting Diagnosis: Endometriosis DS: Discharge Diagnosis Discharge Diagnosis (1) Endometriosis determined by laparoscopy: Code(s): N80.9 - Endometriosis, unspecified Status: Acute DS: Summary Status at Discharge Functional status at discharge: independent ambulation Overall status at discharge: patient is progressing back to baseline Time Spent with Patient Time attestation: Total time spent providing and/or coordinating discharge services: Time spent: Less than 30 minutes DS: Data Data Completed and Pending Pending studies at discharge: Pending at discharge 04/19/20 13:56 Surgical [PTH] Routine Labs on day of discharge: Labs from last 24 hours 04/20/20 04/20/20 03:51 03:51 WBC 17.1 H RBC 4.13 L Hgb 12.6 Hct 38.2 MCV 92.5 MCH 30.5 MCHC 33.0 RDW 11.8 Plt Count 252 D MPV 10.8 H Immature Gran % (Auto) 0.6 H Neut % (Auto) 79.2 H Lymph % (Auto) 15.2 L [place] % (Auto) 4.7 Eos % (Auto) 0.1 Baso % (Auto) 0.2 Lymph # (Auto) 2.59 [place] # (Auto) 0.8 H Eos # (Auto) 0.0 Baso # (Auto) 0.0 Abs Immat Gran (auto) 0.10 H Absolute Neuts (auto) 13.5 H Absolute Nucleated RBC 0.0 Nucleated RBC % 0.1 Sodium 139 Potassium 3.8 Chloride 107 Carbon Dioxide 29 Anion Gap 3 L BUN 5 L Creatinine 0.60 L Estim Creat Clear Calc 145 Estimated GFR > 60 Glucose 107 H Calcium 9.0 Discharge Plan Discharge Attending physician on discharge: Audrey Lam Discharging Clinician: Audrey Lam Patient Disposition: Home, Self-Care Activity: may shower and pelvic rest Diet: regular Patient Instructions: Antibiotic Form Stand Alone Forms: General Discharge Information Follow-up/Referrals: Audrey Lam MD [Physician] - 1 Week Discharge Medications: New hydrocodone-acetaminophen 5-325 mg Tablet 1 tab PO Q4H PRN (Reason: Pain Rated 5 Or Less) Qty: 30 RF: 0 estradiol 1 mg Tablet 1 mg PO QAM Qty: 90 RF: 0 ibuprofen 600 mg Tablet 600 mg PO Q6H PRN (Reason: Cramping) Qty: 60 RF: 0 Continued venlafaxine [Effexor XR] 150 mg Capsule,Extended Release 24hr 150 mg PO QPM RF: 0 buspirone 7.5 mg tablet 7.5 mg PO BID RF: 0 Suphedrine PE 10 mg Tablet 10 mg PO Q4-6H PRN (Reason: Congestion) RF: 0 Discontinued ibuprofen [Advil] 200 mg tablet 200 mg PO Q6H PRN (Reason: Pain) RF: 0 Date of admission: 04/19/20 19:07 Primary Care Provider: PHYSICIAN,MARRIAGE AND FAMILY THERAPIST Admitting Provider: Audrey Lam Attending physician on admission: Audrey Lam Quality VTE Prophylaxis VTE prophylaxis: mechanical ordered and pharmacologic ordered
[2020-04-20] MEDS: SIMETHICONE 80 MG TAB.CHEW PO ×2 (07:42→10:28)
== END 2020-04-20 10:32 | disposition home or self-care (01) ==
LOC: ANHSURGERY 10:52 → ANHOB2 19:24
PROVIDERS: Visit Provider Obstetrics & Gynecology
PROC: 0UT9FZZ Resection of Uterus, Via Natural or Artificial Opening With Percutaneous Endoscopic Assistance (ICD-10-PCS; CPT 58571; principal; 2020-04-19 13:00)
DX: N80.9 Endometriosis, unspecified (principal); N83.292 Other ovarian cyst, left side; N83.291 Other ovarian cyst, right side; N94.10 Unspecified dyspareunia; F41.8 Other specified anxiety disorders; F17.210 Nicotine dependence, cigarettes, uncomplicated; F12.90 Cannabis use, unspecified, uncomplicated; E66.9 Obesity, unspecified; Z68.38 Body mass index [BMI] 38.0-38.9, adult
CPT/HCPCS: 58571; 36415; 80048; 85025; 88307; A9270; J0690; J1100; J1170; J1650; J1885; J2250; J2405; J2704; J2710; J3010; J7030; J7120; J7121

== ENCOUNTER 2020-09-22 10:03 | Outpatient (CLI) | payer OTHER, SELFPAY ==
[2020-09-22 19:34] LABS: HIV 1/2 Ab P24 Ag Result Negative (Negative)
[2020-09-22 23:45] LABS: Hepatitis B Surface Antigen Negative (Negative)
[2020-09-23 00:03] LABS: Hepatitis C Virus Antibody Negative (Negative)
[2020-09-23 07:59] LABS: Rapid Plasma Reagin Non-Reactive (NonReactive)
== END 2020-09-22 10:04 | disposition home or self-care (01) ==
LOC: ANHBWCLAB 10:05
PROVIDERS: Visit Provider Obstetrics & Gynecology
DX: Z20.828 Contact with and (suspected) exposure to other viral communicable diseases (principal)
CPT/HCPCS: 36415; 86592; 86695; 86696; 86703; 86803; 87340; G0432